=== PATIENT | male | born 1945 | race Caucasian/White ===

== ENCOUNTER 2016-06-10 05:06 | Day surgery (SDC) | payer OTHER ==
[2016-06-08 09:20] LABS: HEMATOCRIT 49.7 % (42.0-52.0); MCH 31.8 PG (27-31); MCHC 34.2 g/dL (33-37); MCV 93.1 FL (81-99); MPV 10.5 FL (7.4-10.4); RBC 5.34 XMIL (4.7-6.1)
[2016-06-08 09:25] LABS: INR 1.01; PROTIME 10.7 Seconds (9.2-11.7); PTT 27.1 Seconds (22.0-36.0)
[2016-06-08 09:41] LABS: AGAP 12; BUN 11 mg/dL (8-22); CALCIUM 9.1 mg/dL (8.8-10.2); CHLORIDE 100 mmol/L (98-107); COSMO 281; SODIUM 141 mmol/L (136-145); TCO2 29 mmol/L (25-35)
[2016-06-10] MEDS ORDERED: REGLAN ONE (05:18)
[2016-06-10] MEDS ORDERED: LR 1,000 ML ONE (05:18)
[2016-06-10] MEDS ORDERED: KEFZOL 2 GM/D5W 50 ML ONE (05:18)
[2016-06-10] MEDS ORDERED: PEPCID ONE (05:18)
[2016-06-10] MEDS ORDERED: ROBINUL ONE ×2 (06:31→11:09)
[2016-06-10] MEDS ORDERED: DUONEB (A & A) INH ONE (06:33)
[2016-06-10 08:54] LABS: URINE MICRO REVIEW NEEDED? NO; URINE SOURCE CATH
[2016-06-10] MEDS ORDERED: FENTANYL ONE (09:06)
[2016-06-10] MEDS ORDERED: DIPRIVAN 1% ONE (09:06)
[2016-06-10 09:15] LABS: BILIRUBIN URINE NEGATIVE (NEGATIVE); BLOOD URINE NEGATIVE (NEGATIVE); COLOR YELLOW; GLUCOSE URINE NEGATIVE (NEGATIVE); LEUKOCYTES URINE NEGATIVE (NEGATIVE); NITRITE URINE NEGATIVE (NEGATIVE); PH URINE 7.5; PROTEIN URINE NEGATIVE (NEGATIVE); SP GRAVITY URINE 1.015; TURBIDITY URINE CLEAR (CLEAR); UROBILINOGEN URINE NORMAL (NORMAL)
[2016-06-10 09:16] LABS: UR EPITHELIAL CELLS <10 /HPF (<10); URINE BACTERIA NEGATIVE /HPF; URINE RBC <10 /HPF (<10); URINE WBC <10 /HPF (<10)
[2016-06-10] MEDS ORDERED: NS 1,000 ML ONE (09:18)
[2016-06-10] MEDS: DILAUDID ONE ×2 (09:29→09:45)
[2016-06-10] MEDS ORDERED: MANNITOL ONE (11:08)
[2016-06-10] MEDS ORDERED: ZOFRAN ONE (11:08)
[2016-06-10] MEDS ORDERED: NEOSTIGMINE ONE (11:08)
[2016-06-10] MEDS ORDERED: NORCURON ONE (11:08)
[2016-06-10] MEDS ORDERED: LR 2,000 ML ONE (11:09)
[2016-06-10] MEDS ORDERED: XYLOCAINE-MPF 2% ONE (11:09)
[2016-06-10] MEDS ORDERED: QUELICIN (DOSE) ONE (11:09)
[2016-06-10] MEDS ORDERED: DECADRON ONE (11:09)
[2016-06-10] MEDS ORDERED: DITROPAN PO PRN (13:10)
[2016-06-10] MEDS ORDERED: PHENERGAN PO PRN (13:10)
[2016-06-10] MEDS ORDERED: ZOFRAN IV PRN (13:10)
[2016-06-10] MEDS ORDERED: LABETALOL IV PRN (13:10)
[2016-06-10] MEDS ORDERED: BENADRYL LIQUID PO PRN (13:10)
[2016-06-10] MEDS ORDERED: BENADRYL IV PRN (13:10)
[2016-06-10] MEDS ORDERED: TYLENOL PO PRN (13:10)
[2016-06-10] MEDS ORDERED: PHENERGAN PR PRN (13:10)
[2016-06-10] MEDS ORDERED: PHENERGAN IV PRN (13:10)
[2016-06-10] MEDS ORDERED: B & O 15A SUPP PR PRN (13:10)
[2016-06-10] MEDS ORDERED: SODIUM CHLORIDE 0.9% INJ PRN (13:10)
[2016-06-10] MEDS: MORPHINE IV PRN ×3 (13:23→22:13)
[2016-06-10] MEDS: NORCO-7.5 PO PRN ×3 (13:28→23:21)
[2016-06-10] MEDS: KEFZOL 2 GM/D5W 50 ML IV SCH ×3 (14:46→22:15)
[2016-06-10] MEDS: DUONEB (A & A) INH SCH ×2 (16:24→19:21)
[2016-06-10] MEDS ORDERED: NICODERM PATCH TD SCH (17:15)
[2016-06-10] MEDS: NS 1,000 ML IV SCH ×2 (18:02→23:21)
[2016-06-10] MEDS ORDERED: LIPITOR PO SCH (21:00)
[2016-06-10] MEDS ORDERED: COLACE PO SCH (21:00)
[2016-06-10] MEDS ORDERED: PERIDEX MT SCH (21:00)
[2016-06-11] MEDS: NS 1,000 ML IV SCH (02:39)
[2016-06-11] MEDS: DUONEB (A & A) INH SCH (03:20)
[2016-06-11] MEDS: MORPHINE IV PRN ×2 (04:21→07:20)
[2016-06-11] MEDS: KEFZOL 2 GM/D5W 50 ML IV SCH ×2 (05:43→06:54)
[2016-06-11] MEDS: NORCO-7.5 PO PRN (05:43)
[2016-06-11 06:29] LABS: HEMATOCRIT 41.4 % (42.0-52.0); HEMOGLOBIN 13.8 g/dL (14.0-18.0); MCH 31.9 PG (27-31); MCHC 33.3 g/dL (33-37); MCV 95.8 FL (81-99); MPV 10.9 FL (7.4-10.4); RBC 4.32 XMIL (4.7-6.1)
[2016-06-11 06:57] LABS: AGAP 12; BUN 14 mg/dL (8-22); CALCIUM 8.2 mg/dL (8.8-10.2); CHLORIDE 99 mmol/L (98-107); COSMO 278; POTASSIUM 3.9 mmol/L (3.5-5.1); SODIUM 139 mmol/L (136-145); TCO2 28 mmol/L (25-35)
[2016-06-11 07:15] LABS: CREATININE BODY FLUID 0.9 mg/dL
[2016-06-11 08:17] VITALS: BP 153/83
[2016-06-11] MEDS ORDERED: PRINIVIL PO SCH (09:00)
[2016-06-11] MEDS ORDERED: FLOMAX PO SCH (09:00)
[2016-06-11] MEDS ORDERED: PROZAC PO SCH (09:00)
[2016-06-11] MEDS ORDERED: DUONEB (A & A) INH PRN (16:00)
--- NOTE | 2016-07-05 19:45 | OPERATIVE NOTE ---
PROCEDURE DATE: 06/10/2016 SURGEON: Deniz Sprague MD PREOPERATIVE DIAGNOSIS: Left solid renal mass. PRIMARY PROCEDURES: Left robotic-assisted laparoscopic partial nephrectomy. INDICATIONS: A 71-year-old male who presented with incidental finding of 2.2 cm enhancing left renal mass suspicious for renal cell carcinoma. He presents for definitive intervention. FINDINGS: 14 minutes warm ischemia time, adequate hemostasis at conclusion of the case. PROCEDURE IN DETAIL: After obtaining informed consent, patient brought to the operative room. Perioperative antibiotics and general endotracheal anesthesia were administered. He was placed in modified flank position with the left side up. His upper and lower extremities were appropriately padded. A 16-Icelandic Santiago catheter was introduced with return of clear urine. We made a small stab incision in his umbilicus and introduced the Veress needle connected to saline filled syringe followed by a positive drop test as well as aspiration of fluid in syringe to rule out GI contents or blood. We then insufflated his abdomen to 15 mmHg. Following that we marked our trocar sites in a standard partial nephrectomy fashion. Bovie electrocautery was used to incise skin and camera trocar was introduced. His peritoneal cavity was examined. He did not have any evidence of significant abdominal adhesions. We placed the rest of the trocars under direct vision. The robot was docked and we began by incising the white line of Toldt thereby allowing us to reflect descending colon medially. This was done up to the level of the spleen. The mass was in the upper pole of the left kidney. Once the colon was reflected I identified lower pole of the kidney and was able to identify the left ureter and the gonadal vein. I dissected alongside of the vein until left renal vein was encountered. We dissected around the left renal vein and placed a vessel loop. I then identified the left renal artery was posterior to the vein. Another vessel loop was placed around that. Following that, we turned attention to identification of the mass. I incised the Gerota's fascia and dissected perinephric fat aiming toward the upper pole until the mass was identified. I had to somewhat free the kidney up laterally in order to give us excellent exposure to the edges of the mass. Once that was done I made sure that I cleared off perinephric fat at least 2 cm margin around the mass. A intraoperative robotic ultrasound was then used to confirmed the mass, as well as its size, as well as the negative margins for future resection. I delineated those margins with monopolar cautery. We then had anesthesia administer 12.5 g of mannitol and clamped the renal artery followed by clamping of the renal vein. Following that, scissors were used to excise the mass in its entirety. I was able to see the edge of the mass and took approximately 2-3 mm margin. Once the mass was retrieved it was placed into the EndoCatch bag. A 3-0 V-Loc suture was then used to oversew deeper tissues and what looked like small oozers. We then used 0 V-Loc sutures for renorrhaphy with Hem-o-Ashely clips on the end. I placed a total of 5 sutures that were then tightened. We then took the clamp off the renal vein followed by taking the clamp off the renal artery. Our ischemia time was again at 14 minutes. Repeat examination showed no evidence of active bleeding. We decreasing the pneumoperitoneal pressure to 3 mmHg without any again evidence of active bleeding. RIVAS drain was placed alongside of the kidney, 0 V-Loc suture was used to reapproximate Gerota's fascia. Pneumoperitoneal pressure was decreased once again without evidence of bleeding, trocars were removed after robot was undocked, infraumbilical executive marketing assistant port incision was expanded to remove the mass. The wounds were copiously irrigated and a 0 Vicryl suture in a [id number] fashion was then used to close the incisions fascia. The wounds were irrigated again, 4-0 Monocryl suture was used for subcuticular closure followed by application of Dermabond skin adhesive. He was extubated, taken to PACU for further recovery with Santiago catheter gravity drainage and Rome-Conde drain to bulb suction. ESTIMATED BLOOD LOSS: 50 mL. COMPLICATIONS: None. DISPOSITION: To PACU and subsequently floor for observation. [facility]
== END 2016-06-11 09:18 | disposition home or self-care (01) ==
LOC: OPS 05:06 → UNDOADMOB 12:07 → 4N 12:07 → UNDODISOB 06-11 09:18 → OPS 06-11 09:18
PROVIDERS: ATTEND Urology
DX: C64.2 Malignant neoplasm of left kidney, except renal pelvis (principal); N28.9 Disorder of kidney and ureter, unspecified; Z79.899 Other long term (current) drug therapy; Z79.1 Long term (current) use of non-steroidal anti-inflammatories (NSAID); J44.9 Chronic obstructive pulmonary disease, unspecified; I10 Essential (primary) hypertension; F17.210 Nicotine dependence, cigarettes, uncomplicated; I77.89 Other specified disorders of arteries and arterioles; N40.0 Benign prostatic hyperplasia without lower urinary tract symptoms; M19.90 Unspecified osteoarthritis, unspecified site; G89.29 Other chronic pain; F32.9 Major depressive disorder, single episode, unspecified; F41.9 Anxiety disorder, unspecified; Z90.49 Acquired absence of other specified parts of digestive tract
CPT/HCPCS: 76942; 80048; 81001; 82570; 85027; 85610; 85730; 88307; 88313; 94640; 94761; 94799; J0330; J0690; J1100; J1170; J2150; J2270; J2405; J3010; J7030; J7120; J2710